=== PATIENT | female | born 1990 | race African-American/Black ===

== ENCOUNTER 2016-12-03 17:27 | Emergency (ER) | payer SELFPAY ==
[~2016-12-03] VITALS: Ht 167.6 cm; Wt 63.5 kg
[2016-12-03 17:34] VITALS: BP 120/78
== END 2016-12-03 20:00 | disposition left against medical advice (07) ==
LOC: EMS 17:30
DX: R52 Pain, unspecified (principal); Z53.21 Procedure and treatment not carried out due to patient leaving prior to being seen by health care provider
CPT/HCPCS: 99281